=== PATIENT | male | born 2000 ===

== ENCOUNTER 2020-03-15 19:25 | Outpatient (REF) | payer BC, SELFPAY ==
[2020-03-15 21:10] LABS: HCT 47.8 % (40.0-50.0); HGB 15.8 g/dL (13.5-17.5); Mean Corp. HGB Concentration 33.1 g/dL (32.0-36.0); Mean Corpuscular Hemoglobin 28.1 pg (27.0-33.0); Mean Corpuscular Volume 84.9 fL (80-95); Mean Platelet Volume 10.9 fL (8.0-11.0); Platelet Count 305 x1000/uL (130-400); RBC 5.63 m/cumm (4.50-6.00); RBC Distribution Width 12.8 % (11.8-14.1); White Blood Cell Count 5.43 k/cumm (4.4-10.8)
[2020-03-15 22:02] LABS: TSH (W/Ref FT4) 2.85 uIU/mL (0.36-3.74); Vitamin B12 435 pg/mL (193-986)
[2020-03-17 04:46] LABS: Vitamin D 25 Total 22.6 ng/ml (30-100)
== END 2020-03-15 19:45 ==
LOC: NCHCN 19:25
PROVIDERS: Visit Provider Nurse Practitioner Family
DX: F32.9 Major depressive disorder, single episode, unspecified (principal)
CPT/HCPCS: 82306; 85027; 82607; 84443

== ENCOUNTER 2021-04-04 17:27 | Outpatient (REF) | payer BC, SELFPAY ==
[2021-04-04 21:58] LABS: HCT 43.9 % (40.0-50.0); HGB 14.8 g/dL (13.5-17.5); MCH 28.8 pg (27.0-33.0); MCHC 33.7 % (32.0-36.0); MCV 85.6 fL (80-95); MPV 10.9 fL (8.0-11.0); Platelet Count 314 10^3/uL (130-400); RBC 5.13 10^6/uL (4.36-5.78); RDW-SD 37.7 fL; WBC 6.33 10^3/uL (4.4-10.8)
[2021-04-04 22:16] LABS: Anion Gap 9.5 mmol/L (3-11); BUN 10 mg/dL (7-18); CO2 29.5 mmol/L (21.0-32.0); CREATININE 0.7 mg/dL (0.70-1.30); Calcium 9.6 mg/dL (8.5-10.1); Chloride 102 mmol/L (98-107); Glucose 93 mg/dL (74-106); Potassium 4.1 mmol/L (3.5-5.1); Sodium 141 mmol/L (136-145); TSH (W/Ref FT4) 1.48 uIU/mL (0.36-3.74); Vitamin B12 467 pg/mL (193-986)
[2021-04-04 22:46] LABS: Vitamin D 25 Total 56.3 ng/mL (30-100)
== END 2021-04-04 17:28 | disposition home or self-care (01) ==
LOC: NCHCN 17:27
PROVIDERS: PCP Family Medicine; Visit Provider Family Medicine
DX: F32.5 Major depressive disorder, single episode, in full remission (principal); E55.9 Vitamin D deficiency, unspecified; R51.9 Headache, unspecified
CPT/HCPCS: 80048; 82306; 85027; 82607; 84443

== ENCOUNTER 2021-08-08 16:03 | Outpatient (REF) | payer BC, SELFPAY ==
--- OUTSIDE RECORDS SUMMARY | 2021-08-08 16:06 | XMS_ITS | CCD ---
:2000 Author Care Team Providers Name Role Phone LACLAIR Attending Physician Unavailable Vital Signs Unknown or Not Available. Allergies Unknown or Not Available. Procedures Unknown or Not Available. History of Immunizations Unknown or Not Available. Problems Unknown or Not Available. Results Unknown or Not Available. Active Medications Unknown or Not Available. Medications Administered During Visit Unknown or Not Available. Encounters Encounter Diagnosis Diagnosis Code Start Date Dizziness and giddiness R42 04/21/2021 Social History Smoking Status Code Start Date End Date Former smoker [id number] Patient Decision Aids Unknown or Not Available. Discharge Instructions You were admitted to [facility] on 04/21/2021 14:49 with a principal diagnosis of Dizziness and giddiness You were discharged from [facility] on 04/21/2021 14:49 Should you have any questions prior to d ischarge, please contact a member of your healthcare team. If you have left the spital and have any questions, please contact your primary care physician. Chief Complaint and Reason For Visit Unknown or Not Available. Function Status Unknown or Not Available. Plan of Care Unknown or Not Available. Referral/Transition of Care Unknown or Not Available.
[2021-08-10 15:08] LABS: COVID-19 RT-PCR UVMMC Result Negative (Negative)
== END 2021-08-08 16:04 | disposition home or self-care (01) ==
LOC: NCHCN 16:03
PROVIDERS: PCP Family Medicine; Visit Provider Family Medicine
DX: Z20.822 Contact with and (suspected) exposure to COVID-19 (principal)
CPT/HCPCS: U0003

== ENCOUNTER → 2023-06-05 22:26 | Outpatient (CLI) | payer OTHER, SELFPAY ==
--- NOTE | 2023-06-05 11:30 | DI.RAD_ITS ---
Exam(s) XR FOOT LT COMPLETE EXAM: XR FOOT LT COMPLETE CLINICAL HISTORY: left foot nail through plantar foot, r/o fx and FB [id number]. TECHNIQUE: 2D digital imaging was performed of the left foot. Images were obtained. AP, oblique a nd lateral views were obtained. COMPARISON: No exams were available for comparison FINDINGS: BONES: No acute fracture is present. No bony destructive lesion is seen. JOINTS: No dislocation present. SOFT TISSUE: No radiopaque foreign body. IMPRESSION: Unremarkable radiographs of the left foot. DATA REPOSITORY: RADIATION DOSE DELIVERED:
== END ==
PROVIDERS: PCP Family Medicine; Visit Provider Physician Assistant
DX: S90.852A Superficial foreign body, left foot, initial encounter (principal); X58.XXXA Exposure to other specified factors, initial encounter
CPT/HCPCS: 73630